=== PATIENT | female | born 2000 | race Caucasian/White ===

== ENCOUNTER 2021-05-28 14:35 | Emergency (ER) | payer OTHER ==
[~2021-05-28] VITALS: Ht 157.5 cm; Wt 61.2 kg
[~2021-05-28 14:35] MED LIST: AMOX-1230 PO; HYDR-5122 PO
[2021-05-28 14:47] VITALS: BP 121/83
--- NOTE | 2021-05-28 14:49 | NUR ---
21YO F C/O RIGHT THUMB LACERATION FROM [place] 10MINS AGO. PATIENT REPORTS NUMBNESS AND TINGLING TO AREA, DENIES PAIN. PT DENIES CLEANING WOUND. NO MEDICATIONS APPLIED OR TAKEN. IN ED, VSS. WITH ~4CM LAC TO LATERAL ASPECT OF RIGHT THUMB, ACTIVE BLEEDING NOTED. PT POSITIONED IN BED COMFORTABLY WITH MOTHER AT BEDSIDE. ERMD MADE AWARE OF PT STATUS. PMH: NONE MEDS: NONE NKA
[2021-05-28] MEDS ORDERED: LIDOCAINE MPF 1% 10 MG/ML VIAL INJ ONE (15:00)
[2021-05-28 15:56] VITALS: BP 121/83
--- NOTE | 2021-05-28 15:57 | NUR ---
Patient discharged with v/s stable. Written and verbal after care instructions given and explained. Patient verbalized understanding. Ambulatory with steady gait. All questions addressed prior to discharge. Advised to follow up with PMD.
== END 2021-05-28 15:57 | disposition home or self-care (01) ==
LOC: MED 14:35
DX: S61.011A Laceration without foreign body of right thumb without damage to nail, initial encounter (principal); Z79.899 Other long term (current) drug therapy; W25.XXXA Contact with sharp glass, initial encounter; Y93.89 Activity, other specified; Y92.89 Other specified places as the place of occurrence of the external cause; Y99.8 Other external cause status
CPT/HCPCS: 12001; 90471; 90715; 99283; J2001

== ENCOUNTER 2021-05-30 14:23 | Emergency (ER) | payer OTHER ==
[~2021-05-30] VITALS: Ht 157.5 cm; Wt 61.2 kg
[2021-05-30 14:28] VITALS: BP 125/67
--- NOTE | 2021-05-30 14:32 | NUR ---
PT AMB TO BED 6.
--- NOTE | 2021-05-30 14:35 | NUR ---
BIB SELF FOR RECHECK. PATIENT STATES SHE RECEIVED SUTURES TO HER RIGHT THUMB TWO DAYS AGO AND WAS TOLD TO RETURN TODAY FOR RECHECK. PATIENTS DENIES PAIN, STATES "I THINK IT IS HEALING GOOD." NO SIGNS OF INFECTION, PER PATIENT ROM HAS IMPROVED FROM DAY OF LACERATION, SENSATIONS AND PULSES EQUAL BILATERALLY. PATIENT HAS NO OTHER COMPLAINTS AT THIS TIME.
[2021-05-30 14:49] VITALS: BP 125/67
== END 2021-05-30 14:49 | disposition home or self-care (01) ==
LOC: MED 14:23
DX: S61.011D Laceration without foreign body of right thumb without damage to nail, subsequent encounter (principal); Z79.899 Other long term (current) drug therapy; X58.XXXD Exposure to other specified factors, subsequent encounter
CPT/HCPCS: 99281

== ENCOUNTER 2021-06-10 16:25 | Emergency (ER) | payer OTHER ==
[~2021-06-10] VITALS: Ht 157.5 cm; Wt 60.8 kg
[2021-06-10 17:41] VITALS: BP 108/60
== END 2021-06-10 17:57 | disposition home or self-care (01) ==
LOC: MED 16:25
DX: S61.011D Laceration without foreign body of right thumb without damage to nail, subsequent encounter (principal); Z48.02 Encounter for removal of sutures; Z79.891 Long term (current) use of opiate analgesic; Z79.2 Long term (current) use of antibiotics; X58.XXXD Exposure to other specified factors, subsequent encounter
CPT/HCPCS: 99281

== ENCOUNTER 2021-08-27 21:19 | Emergency (ER) | payer BC, OTHER ==
[~2021-08-27] VITALS: Ht 157.5 cm; Wt 63.5 kg
[2021-08-27 21:24] VITALS: BP 126/66
--- NOTE | 2021-08-27 21:25 | NUR ---
TO BED 9 FOLLOWING TRIAGE
--- NOTE | 2021-08-27 21:48 | NUR ---
Dr. Peraza at bedside.
== END 2021-08-27 23:15 | disposition home or self-care (01) ==
LOC: MED 21:19
DX: S01.112A Laceration without foreign body of left eyelid and periocular area, initial encounter (principal); W19.XXXA Unspecified fall, initial encounter; Y93.89 Activity, other specified; Y92.89 Other specified places as the place of occurrence of the external cause; Y99.8 Other external cause status
CPT/HCPCS: 12013; 99282